=== PATIENT | male | born 1955 | race African-American/Black ===

== ENCOUNTER 2018-05-11 13:56 | Inpatient (IN) | payer MEDICAID, MEDICARE ==
[~2018-05-11] VITALS: Ht 170.2 cm; Wt 84.0 kg
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
[2018-05-11 14:48] LABS: BASOPHILS # (AUTO) 0.01 x10^3/uL (0-0.1); BASOPHILS % (AUTO) 0 % (0-1); EOSINOPHILS # (AUTO) 0.02 x10^3/uL (0-0.4); EOSINOPHILS % (AUTO) 0 % (1-7); LYMPHOCYTES # (AUTO) 1.75 x10^3/uL (1-3.4); LYMPHOCYTES % (AUTO) 23 % (22-44); MD NO; MEAN CORPUSCULAR HEMOGLOBIN 32.9 pg (27.5-34.5); MEAN CORPUSCULAR HGB CONC 34.2 g/dL (33.2-36.2); MEAN CORPUSCULAR VOLUME 96.2 fL (81-97); MEAN PLATELET VOLUME 7.7 fL (7.4-10.4); MONOCYTES # (AUTO) 0.42 x10^3/uL (0.2-0.8); MONOCYTES % (AUTO) 6 % (2-9); NEUTROPHILS % (AUTO) 71 % (42-75); PLATELET COUNT 239 x10^3/uL (130-400); RED CELL DISTRIBUTION WIDTH 14.3 % (9.4-14.8)
[2018-05-11 14:58] LABS: ALANINE AMINOTRANSFERASE 111 U/L (12-78); ALBUMIN 4.2 g/dL (3.4-5.0); ANION GAP 13 mmol/L (5-15); CALCIUM 8.8 mg/dL (8.5-10.1); CHLORIDE 108 mmol/L (98-107); CREATININE 1.13 mg/dL (0.7-1.3)
[2018-05-11 15:00] LABS: ACETAMINOPHEN < 2 mcg/mL (10-30); ALKALINE PHOSPHATASE 78 U/L (45-117); BILIRUBIN,TOTAL 0.9 mg/dL (0.2-1.0); SALICYLATE LEVEL < 1.7 mg/dL (2.8-20.0); TOTAL PROTEIN 7.6 g/dL (6.4-8.2)
[2018-05-11 15:02] LABS: MICROSCOPIC INDICATED
[2018-05-11 15:05] LABS: CULTURE INDICATED? NO
--- NOTE | 2018-05-11 15:20 | NUR ---
PT RESTING IN HOSPITAL BED, NAD, WATCHING TV, SITTER AT DOORWAY
[2018-05-11 15:44] LABS: BENZODIAZEPINE SCREEN, URINE Negative (Negative); CANNABINOID SCREEN, URINE Negative (Negative); COCAINE SCREEN, URINE Negative (Negative); METHADONE SCREEN, URINE Negative (Negative); OPIATE SCREEN, URINE Negative (Negative)
[2018-05-11 15:46] LABS: AMPHETAMINE SCREEN, URINE Positive (Negative); BARBITURATE SCREEN, URINE Negative (Negative)
--- NOTE | 2018-05-11 16:14 | NUR ---
REPEAT BA 0.149. PT RESTING IN GURNEY, DIET TRAY ORDERED
--- NOTE | 2018-05-11 17:04 | NUR ---
PT GIVEN DINNER TRAY
--- NOTE | 2018-05-11 18:18 | NUR ---
REPEAT BA 0.159, PT PROVIDED WITH ICE WATER
--- NOTE | 2018-05-11 18:48 | NUR ---
PT REPORT FROM AMEYA PONCE. THIS RN TO ASSUME CARE OF PT. NO IMMEDIATE NEEDS. ROLLER DOORS IN PLACE. SITTER IN HALLWAY.
--- NOTE | 2018-05-11 20:21 | NUR ---
Pt sober at this time. and PA at bedside for reassessment. States still hi and si, with no plan. Pt is pleasant during interactions. States hx of schizoaffective disorder and off meds for 2 days.
[2018-05-11] MEDS ORDERED: LORazepam 1MG TABLET ONE (20:26)
[2018-05-11] MEDS ORDERED: LORazepam 1MG TABLET PO ONE (20:30)
--- NOTE | 2018-05-11 20:47 | NUR ---
LEON RN: PACKET FAXED TO [facility]
--- NOTE | 2018-05-11 21:27 | NUR ---
Pt resting comfortably on hospital bed. No immediate needs. Sitter in hallway.
--- NOTE | 2018-05-11 22:53 | NUR ---
Pt resting comfortably on hospital bed. No immediate needs. Sitter in hallway.
--- NOTE | 2018-05-12 00:43 | NUR ---
Pt resting comfortably on hospital bed. No immediate needs. Sitter in hallway.
--- NOTE | 2018-05-12 02:12 | NUR ---
Pt sleeping comfortably on hospital bed. RR even and ulnabored. No immediate needs. Sitter in hallway.
--- NOTE | 2018-05-12 03:55 | NUR ---
Pt sleeping comfortably on hospital bed. RR even and unlabored. No immediate needs. Sitter in hallway.
--- NOTE | 2018-05-12 05:17 | NUR ---
Pt sleeping comfortably on hospital bed. RR even and unlabored. No immediate needs. Sitter in hallway.
--- NOTE | 2018-05-12 06:38 | NUR ---
Pt sleeping comfortably on hospital bed. RR even and unlabored. No immediate needs. Sitter in hallway.
--- NOTE | 2018-05-12 06:56 | NUR ---
PT REPORT TO TYLER PONCE.
--- NOTE | 2018-05-12 07:00 | NUR ---
RECEIVED REPORT FROM BERHANE COFFEY RN. PT RESTING IN BED. RITIKA. SITTER REMAINS AT BEDSIDE. ROOM REMAINS SECURE.
--- NOTE | 2018-05-12 08:28 | NUR ---
PT PROVIDED W/ BREAKFAST MEAL TRAY. PT RESTING IN BED. NADN. VSS. SITTER REMAINS AT BEDSIDE. ROOM REMAINS SECURE.
--- NOTE | 2018-05-12 09:11 | NUR ---
REPORT RECEIVED FROM ZULY PONCE. PATIENT RESTING COMFORTABLY ON HOSPITAL BED W/ SIDE RAILS UP. FAST ASLEEP. WHEN AROUSED A+OX4 WITH NO COMPLAINTS. PATIENT A LEGAL HOLD. ROOM SECURED W/ PSYCH PRECAUTIONS. 1:1 SITTER AT BEDSIDE. ATE ALL OF BREAKFAST.
--- NOTE | 2018-05-12 10:49 | NUR ---
PATIENT RESTING COMFORTABLY ON HOSPITAL BED W/ SIDE RAILS UP. WATCHING TELEVISION. . ROOM SECURED W/ PSYCH PRECAUTIONS. 1:1 SITTER AT BEDSIDE.
--- NOTE | 2018-05-12 11:15 | NUR ---
PATIENT RESTING COMFORTABLY ON HOSPITAL BED W/ SIDE RAILS UP. NOW SLEEPING. ROOM SECURED W/ PSYCH PRECAUTIONS. 1:1 SITTER AT BEDSIDE. LUNCH ORDERED
--- NOTE | 2018-05-12 12:10 | NUR ---
PATIENT RESTING COMFORTABLY ON HOSPITAL BED W/ SIDE RAILS UP. ROOM SECURED W/ PSYCH PRECAUTIONS. 1:1 SITTER AT BEDSIDE. LUNCH DELIVERED TO BEDSIDE. SPOKE TO PATIENT FOR AWHILE- DENIES ACUTE COMPLAINTS AT THIS TIME. WILL CONTINUE TO MONITOR.
--- NOTE | 2018-05-12 13:40 | NUR ---
PATIENT RESTING COMFORTABLY ON HOSPITAL BED W/ SIDE RAILS UP. ROOM SECURED W/ PSYCH PRECAUTIONS. 1:1 SITTER AT BEDSIDE. [employer] ETL DEVELOPER SPENT 15 MINUTES TO ALLOW PATIENT TO VENT. HE REPORTS HE IS THANKFUL FOR OUR CARE AND DOES NOT NEED ANYTHING FOR DISCOMFORT OR AGITATION AT THIS TIME. LUNCH DELIVERED TO BEDSIDE. SPOKE TO PATIENT FOR AWHILE- DENIES ACUTE COMPLAINTS AT THIS TIME. WILL CONTINUE TO MONITOR.
--- NOTE | 2018-05-12 14:15 | NUR ---
PATIENT RESTING COMFORTABLY ON HOSPITAL BED W/ SIDE RAILS UP. ROOM SECURED W/ PSYCH PRECAUTIONS. 1:1 SITTER AT BEDSIDE. DENIES ACUTE COMPLAINTS AT THIS TIME. WILL CONTINUE TO MONITOR. UPDATED ON ESTIMATED POC
--- NOTE | 2018-05-12 15:20 | NUR ---
PATIENT RESTING COMFORTABLY ON HOSPITAL BED W/ SIDE RAILS UP. ROOM SECURED W/ PSYCH PRECAUTIONS. 1:1 SITTER AT BEDSIDE. DENIES ACUTE COMPLAINTS AT THIS TIME. WILL CONTINUE TO MONITOR.
--- NOTE | 2018-05-12 16:46 | NUR ---
PATIENT RESTING COMFORTABLY ON HOSPITAL BED W/ SIDE RAILS UP. ROOM SECURED W/ PSYCH PRECAUTIONS. 1:1 SITTER AT BEDSIDE. DENIES ACUTE COMPLAINTS AT THIS TIME. WILL CONTINUE TO MONITOR. DINNER TRAY ORDERED/CALLED FOR.
[2018-05-12] MEDS ORDERED: QUET300T5 PO (17:16)
[2018-05-12] MEDS ORDERED: OLAN20TA3 PO (17:16)
--- NOTE | 2018-05-12 17:20 | NUR ---
REPORT TO SUNDAR PONCE PATIENT TRANSFERRED TO ER ROOM 40. VITAL UPDATED. REMAIN IN ROOM W/ PSYCH PRECAUTIONS W/ SITTER AT BEDSIDE
--- NOTE | 2018-05-12 17:30 | NUR ---
pt transferred to room 40 from room 02 via hospital bed.
--- NOTE | 2018-05-12 17:36 | NUR ---
received report from Robert PONCE. pt upright on gurney awake, calm & cooperative, watching TV, responds approp to staff, comfort measures provided, dinner tray given, pt in safe environment, sitter in view.
--- NOTE | 2018-05-12 18:05 | NUR ---
pt remains upright on gurney awake, calm & cooperative, watching TV, responds approp to staff, comfort measures provided, dinner tray given, pt in safe environment, sitter in view.
--- NOTE | 2018-05-12 18:53 | NUR ---
report given to Gail
--- NOTE | 2018-05-12 19:20 | NUR ---
PT RESTING CALMLY IN BED. PT COOPERATIVE AT THIS TIME. WILL CONTINUE TO MONITOR.
--- NOTE | 2018-05-12 20:20 | NUR ---
PT CONTINUES TO REST IN BED. NO STATED NEEDS. SITTER AT DOOR.
--- NOTE | 2018-05-12 21:03 | NUR ---
PT RESTING CALMLY IN BED. NO STATED NEEDS. SITTER AT DOOR.
--- NOTE | 2018-05-12 22:13 | NUR ---
PT RESTING IN BED. NO NEEDS STATED. WILL CONTINUE TO MONITOR. SITTER AT DOOR FOR FREQUENT OBS.
--- NOTE | 2018-05-12 23:01 | NUR ---
PT RESTING IN BED. NO NEEDS STATED. WILL CONTINUE TO MONITOR. SITTER AT DOOR FOR FREQUENT OBS.
--- NOTE | 2018-05-13 00:57 | NUR ---
pt resting calmly in bed, pt resp even and non labored. no stated needs at this time. sitter watching over pt.
--- NOTE | 2018-05-13 01:27 | NUR ---
pt REMAINS resting calmly in bed with eyes closed. pt resp even and non labored. no stated needs at this time. sitter watching over pt.
--- NOTE | 2018-05-13 02:11 | NUR ---
pt resting calmly in bed with eyes closed. no stated needs at this time. sitter watching pt.
--- NOTE | 2018-05-13 03:51 | NUR ---
pt resting calmly in bed with eyes closed. pt resp even and non labored. no stated needs at this time. sitter watching over pt.
--- NOTE | 2018-05-13 04:19 | NUR ---
PT REMAINS RESTING CALMLY IN BED. NO STATED NEEDS. PT RESP EVEN AND NON LABORED. SITTER AT DOOR FOR OBS.
--- NOTE | 2018-05-13 05:16 | NUR ---
PT CONTINUES TO REST IN BED. NO STATED NEEDS. SITTER AT DOOR FOR OBS.
--- NOTE | 2018-05-13 05:18 | NUR ---
BREAKFAST ORDERED FOR PT.
--- NOTE | 2018-05-13 06:57 | NUR ---
PT RESTING CALMLY IN BED. RESP EVEN. NO NEEDS AT THIS TIME. REPORT TO OMAR PONCE.
--- NOTE | 2018-05-13 07:34 | NUR ---
pt sleeping in gurney, arouses to verbal stimuli. pt denies needs at this time. [facility], room secured
--- NOTE | 2018-05-13 08:18 | NUR ---
pt provided with breakfast tray. pt denies any further needs at this time
[2018-05-13] MEDS ORDERED: LORazepam 1MG TABLET PO ONE (11:30)
[2018-05-13] MEDS ORDERED: LORazepam 1MG TABLET ONE (11:58)
--- NOTE | 2018-05-13 12:08 | NUR ---
PT AWAKE AND SITTING UP IN [facility]. PT REPORTS INCREASED ANXIETY. DISCUSSED POC WITH PT WHOM VERBALIZES UNDERSTANDING. DISCUSSED WITH DR VALENCIA. NEW ORDER RECEIVED. PT MEDICATED PER APR. PT PROVIDED WITH MEAL TRAY AND WATER. PT DENIES FURTHER NEEDS AT THIS TIME
--- NOTE | 2018-05-13 14:15 | NUR ---
PT RESTING IN GURNEY, NO ACUTE S/S OF DISTRESS. PT REPORTS DECREASE IN ANXIETY POST RX. DENIES ANY NEEDS AT THIS TIME. SITTER MONITORING FROM [facility] FOR SAFETY. PT ATE APPROX 75% OF LUNCH
--- NOTE | 2018-05-13 15:27 | NUR ---
PT RESTING IN BED. NO ACUTE S/S OF DISTRESS. PT DENIES NEEDS AT THIS TIME. ROOM SECURE AND SITTER MONITORING FROM [facility] S[facility]
--- NOTE | 2018-05-13 18:42 | NUR ---
PT AWAKE IN BED WATCHING TV. PT DENIES ANY NEEDS AT THIS TIME. NO ACUTE S/S OF DISTRESS. SITTER MONITORINNG FROM [facility]
--- NOTE | 2018-05-13 19:06 | NUR ---
ASSUMED CARE OF PATIENT. REPORT GIVEN FROM KRIS COTTRELL. PT RESTING IN ROOM. REGULAR RESP. SITTER AT DOOR. PT GIVEN DINNER. WILL CONTINUE TO MONITOR.
--- NOTE | 2018-05-13 20:03 | NUR ---
PT WATCHING TV IN ROOM. NO ACUTE DISTRESS NOTED. SITTER AT DOOR. WILL CONTINUE TO MONITOR.
--- NOTE | 2018-05-13 21:37 | NUR ---
PT RESTING IN ROOM. NO ACUTE DISTRSES NOTED. VS STABLE. SITTER AT DOOR. WILL CONTINUE TO MONITOR.
--- NOTE | 2018-05-13 22:09 | NUR ---
THROUGHPUT RN: Called [facility] for admission, per Guevara they are full and unable to accept patient.
[2018-05-13] MEDS ORDERED: ACETAMINOPHEN 325 MG TABLET PO PRN (22:30)
--- NOTE | 2018-05-13 22:31 | NUR ---
HOSPITALIST IN ROOM SITTER AT DOOR NO ACUTE DISTRESS NOTED.
--- NOTE | 2018-05-13 23:00 | NUR ---
PT SEEN BY THE HOSPITALIST. TELEPSYCH ORDERED.
--- NOTE | 2018-05-14 00:12 | NUR ---
PT WATCHING TV IN ROOM. NO ACUTE DISTRESS NOTED. SITTER AT DOOR. WILL CONTINUE TO MONITOR.
--- NOTE | 2018-05-14 01:05 | NUR ---
PT RESTING IN ROOM. NO ACUTE DISTRESS NOTED. SITTER AT DOOR. WILL CONTINUE TO MONITOR.
--- NOTE | 2018-05-14 01:18 | NUR ---
TASK RN: REPORT TO SOC PSYCHIATRIST
--- NOTE | 2018-05-14 02:20 | NUR ---
TELEPSYCH DONE. HOSPITALIST AWARE OF RECOMMENDATIONS. PT RESTING IN ROOM. SITTER AT DOOR. NO ACUTE DISTRESS NOTED. WILL CONTINUE TO MONITOR.
--- NOTE | 2018-05-14 03:33 | NUR ---
PT RESTING IN ROOM. SITTER AT DOOR. NO ACUTE DISTRESS NOTED. SITTER AT DOOR. WILL CONTINUE TO MONITOR.
--- NOTE | 2018-05-14 04:29 | NUR ---
PT RESTING IN ROOM. NO ACUTE DISTRESS NOTED. SITTER AT DOOR. WILL CONTINUE TO MONITOR.
--- NOTE | 2018-05-14 05:31 | NUR ---
PT RESTING IN ROOM. REGULAR RESP. NO ACUTE DISTRESS NOTED. SITTER AT DOOR. WILL CONTINUE TO MONITOR.
[2018-05-14 05:41] LABS: ANION GAP 6 mmol/L (5-15); CALCIUM 9.1 mg/dL (8.5-10.1); CHLORIDE 110 mmol/L (98-107); CREATININE 0.89 mg/dL (0.7-1.3)
[2018-05-14 05:43] LABS: BASOPHILS # (AUTO) 0.03 x10^3/uL (0-0.1); BASOPHILS % (AUTO) 1 % (0-1); EOSINOPHILS # (AUTO) 0.46 x10^3/uL (0-0.4); EOSINOPHILS % (AUTO) 9 % (1-7); LYMPHOCYTES # (AUTO) 2.23 x10^3/uL (1-3.4); LYMPHOCYTES % (AUTO) 43 % (22-44); MD NO; MEAN CORPUSCULAR HGB CONC 34.1 g/dL (33.2-36.2); MEAN CORPUSCULAR VOLUME 96.8 fL (81-97); MEAN PLATELET VOLUME 8.1 fL (7.4-10.4); MONOCYTES # (AUTO) 0.46 x10^3/uL (0.2-0.8); MONOCYTES % (AUTO) 9 % (2-9); NEUTROPHILS # (AUTO) 1.97 x10^3/uL (1.8-6.8); NEUTROPHILS % (AUTO) 38 % (42-75); PLATELET COUNT 202 x10^3/uL (130-400); RED BLOOD COUNT 4.26 x10^6/uL (4.38-5.82); RED CELL DISTRIBUTION WIDTH 13.6 % (9.4-14.8)
--- NOTE | 2018-05-14 06:58 | NUR ---
REPORT GIVEN TO KRIS MARTINES
--- NOTE | 2018-05-14 06:58 | NUR ---
BEDSIDE REPORT FROM RN KEE, PT CARE ASSUMED AT THIS TIME. PT ASLEEP IN BED IN SUICIDE SECURED ROOM, NAD, NO NEEDS AT THIS TIME, SITTER AT DOORWAY, ALL BELONGINGS SECURED BY PRIOR SHIFT. BREAKFAST ORDERED.
--- NOTE | 2018-05-14 08:15 | NUR ---
BREAKFAST TRAY DELIVERED, PT IN BED, NAD, NO NEEDS AT THIS TIME, SITTER AT DOORWAY, [facility].
--- NOTE | 2018-05-14 08:37 | NUR ---
[facility] TECH CALLED THIS RN TO ASK THIS RN TO CALL MD ARROYO TO CHANGE A NUMBER OF ORDERS. I GAVE THE TECH MD JOINER PHONE NUMBER AND REQUESTED THAT THEY CONTACT MD ARROYO FOR THEIR REQUESTS. PT CALM AND COOPERATIVE, NO NEEDS AT THIS TIME. WCTM, SITTER AT BEDSIDE
[2018-05-14] MEDS ORDERED: OLANZAPINE 10 MG TABLET ONE (08:41)
[2018-05-14] MEDS: OLANZAPINE 10 MG TABLET PO SCH (08:44)
--- NOTE | 2018-05-14 10:03 | NUR ---
BEDSIDE REPORT TO KRIS SALAS, PT CARE TRANSFERRED AT THIS TIME
[2018-05-14 12:41] VITALS: BP 168/99
[2018-05-14 19:09] VITALS: BP 112/68
[2018-05-14] MEDS: QUETIAPINE 100MG TABLET PO SCH (21:24)
[2018-05-15 08:23] VITALS: BP 139/85
[2018-05-15] MEDS: OLANZAPINE 10 MG TABLET PO SCH (09:24)
[2018-05-15 20:11] VITALS: BP 130/81
[2018-05-15] MEDS: QUETIAPINE 100MG TABLET PO SCH (20:59)
[2018-05-16 07:39] VITALS: BP 116/75
[2018-05-16] MEDS: OLANZAPINE 10 MG TABLET PO SCH (10:03)
[2018-05-16 19:21] VITALS: BP 110/70
[2018-05-16] MEDS: QUETIAPINE 100MG TABLET PO SCH (20:08)
[2018-05-17 07:22] VITALS: BP 130/89
[2018-05-17] MEDS: OLANZAPINE 10 MG TABLET PO SCH (08:06)
[2018-05-17] MEDS ORDERED: HYDROXYZINE PAMOATE 50MG CAP PO PRN ×2 (09:00→09:30)
[2018-05-17] MEDS: HYDROXYZINE PAMOATE 25MG CAP PO PRN (09:42)
[2018-05-17 19:30] VITALS: BP 124/76
[2018-05-17] MEDS: QUETIAPINE 100MG TABLET PO SCH (21:12)
[2018-05-18 07:17] VITALS: BP 147/86
[2018-05-18] MEDS ORDERED: OLANZAPINE 5 MG TABLET ONE (09:27)
[2018-05-18] MEDS: OLANZAPINE 10 MG TABLET PO SCH (09:28)
[2018-05-18 20:01] VITALS: BP 120/74
[2018-05-18] MEDS: QUETIAPINE 100MG TABLET PO SCH (20:48)
[2018-05-18] MEDS: HYDROXYZINE PAMOATE 25MG CAP PO PRN (20:48)
[2018-05-19 08:00] VITALS: BP 128/80
[2018-05-19] MEDS: OLANZAPINE 10 MG TABLET PO SCH (08:55)
[2018-05-19] MEDS: QUETIAPINE 100MG TABLET PO SCH (20:07)
[2018-05-19] MEDS: HYDROXYZINE PAMOATE 25MG CAP PO PRN (20:07)
[2018-05-19 20:13] VITALS: BP 133/81
[2018-05-20 07:32] VITALS: BP 126/84
[2018-05-20] MEDS: OLANZAPINE 10 MG TABLET PO SCH (07:41)
[2018-05-20 20:00] VITALS: BP 126/84
[2018-05-20] MEDS: QUETIAPINE 100MG TABLET PO SCH (20:51)
[2018-05-20] MEDS: HYDROXYZINE PAMOATE 25MG CAP PO PRN (20:51)
[2018-05-21] MEDS: OLANZAPINE 10 MG TABLET PO SCH (08:09)
[2018-05-21 08:22] VITALS: BP 128/82
[2018-05-21 19:22] VITALS: BP 143/91
[2018-05-21] MEDS: HYDROXYZINE PAMOATE 25MG CAP PO PRN (20:23)
[2018-05-21] MEDS: QUETIAPINE 100MG TABLET PO SCH (20:23)
[2018-05-22 07:26] VITALS: BP 124/71
[2018-05-22] MEDS: OLANZAPINE 10 MG TABLET PO SCH (08:32)
[2018-05-22] MEDS: QUETIAPINE 100MG TABLET PO SCH (20:41)
[2018-05-23 08:00] VITALS: BP 134/87
[2018-05-23] MEDS: OLANZAPINE 10 MG TABLET PO SCH (09:14)
[2018-05-23] MEDS: QUETIAPINE 100MG TABLET PO SCH (20:25)
[2018-05-23 20:31] VITALS: BP 146/84
[2018-05-24 07:26] VITALS: BP 123/84
[2018-05-24] MEDS: OLANZAPINE 10 MG TABLET PO SCH (08:02)
[2018-05-24] MEDS ORDERED: HYDR25CA94 PO (14:15)
[2018-05-24] MEDS ORDERED: OLAN10TA9 PO (14:15)
[2018-05-24] MEDS ORDERED: QUET100T PO (14:15)
== END 2018-05-24 14:49 | DRG 885 ==
LOC: ED 16:51 → EDIP 05-13 21:59 → 2N 05-14 12:40
PROVIDERS: ADMIT Internal Medicine; ATTEND Internal Medicine
DX: F20.9 Schizophrenia, unspecified (principal); R45.851 Suicidal ideations; I10 Essential (primary) hypertension; F32.9 Major depressive disorder, single episode, unspecified; F15.10 Other stimulant abuse, uncomplicated; F12.90 Cannabis use, unspecified, uncomplicated; F10.220 Alcohol dependence with intoxication, uncomplicated; F17.200 Nicotine dependence, unspecified, uncomplicated; Z91.14 Patient's other noncompliance with medication regimen; Y90.9 Presence of alcohol in blood, level not specified
CPT/HCPCS: 36415; 80048; 80053; 80307; 80329; 81001; 85025; G0378; G0480